=== PATIENT | male | born 1980 | race American Indian/Alaskan Native ===

== ENCOUNTER 2019-05-09 11:26 | Emergency (ER) | payer SELFPAY ==
[2019-05-09 11:32] VITALS: BP 144/93
--- NOTE | 2019-05-09 12:10 | Emergency Department Report ---
Chief Complaint: Extremity Problem,Nontraumatic Stated Complaint: KNEE PAIN Time Seen by Provider: 05/09/19 12:04 - HPI History of Present Illness: 3 weeks of chronic continuous R knee pain with swelling. no trauma no fever - ROS Review of Systems: all systems reviewed and negative - Exam Vital Signs: Vital Signs 05/09/19 11:31 Temperature 98.3 F Pulse Rate 85 Respiratory 16 Rate Blood Pressure 144/93 O2 Sat by Pulse 100 Oximetry Physical Exam: AOx3. right knee with moderate effusion, mild crepitus but FROM, no erythema MSE screening note: Focused history and physical exam performed. Due to findings the following was ordered: ED Medical Decision Making - Medical Decision Making non med emergency. to follow up with Ortho ED Disposition for MSE Clinical Impression: Knee effusion, right Disposition: MED SCREENING EXAM-LEFT Is pt being admited?: No Does the pt Need Aspirin: No Condition: Stable Instructions: Osteoarthritis (ED), Knee Effusion (ED), RICE Therapy (ED) Additional Instructions: Please take Ibuprofen (Motrin or Advil or generic) 800mg every 6-8 hours as needed Referrals: CALOS TAPIA MD [Staff Physician] - 3-5 Days Forms: Work/School Release Form(ED) Time of Disposition: 12:14
== END 2019-05-09 12:15 | disposition left against medical advice (07) ==
LOC: ED 11:26
DX: M25.461 Effusion, right knee (principal)
CPT/HCPCS: 99281

== ENCOUNTER 2019-08-04 20:31 | Emergency (ER) | payer SELFPAY ==
[2019-08-04] MEDS ORDERED: KETOROLAC 30 MG/1 ML INJ IM ONE (21:52)
[2019-08-04] MEDS ORDERED: oxyCODONE /ACETAMINOPHEN 5-325MG TAB PO ONE (21:52)
[2019-08-04] MEDS ORDERED: dexAMETHasone 20 MG/5 ML VIAL IM ONE (21:52)
[2019-08-04] MEDS ORDERED: ONDANSETRON 4 MG ODT TAB PO ONE (21:53)
--- NOTE | 2019-08-04 22:04 | Emergency Department Report ---
ED Back Pain/Injury HPI - General Chief Complaint: Back Pain/Injury Stated Complaint: BACK PAIN RT LEG PAIN x3 WEEKS Source: patient Limitations: No Limitations - History of Present Illness Initial Comments: Patient is a 39-year-old -[place] male with a history of hypertension and chronic low back pain with sciatica who presents to the ED with acute exacerbation of his chronic low back pain that radiates to the right leg and severe right knee pain for the last 3 weeks worse in the last 2 days. Patient states that he has not been able to sleep because of severe pain. Patient states that he has been taking [id number] medications with no relief. Patient states the pain is worse both at rest and with activity and that the pain appears to be mildly relieved when he ambulates around. Patient denies fall, dizziness, syncope, chest pain, shortness of breath, hematuria, dysuria, testicular pain, heavy lifting, traumatic injury, nausea and vomiting or abdominal pain, fever and chills. MD Complaint: back pain, other (right leg) -: Sudden, week(s) (3) Similar Symptoms Previously: Yes Place: home Radiation: right leg Severity: severe Severity scale (0 -10): 8 Quality: sharp, aching Consistency: constant Improves With: none Worsens With: movement, walking Associated Symptoms: denies other symptoms. denies: confusion, weakness, chest pain, numbness, difficulty walking, cough, diaphoresis, incontinence, fever/chills, constipation, nausea/vomiting, rash, seizure, shortness of breath, syncope Treatments Prior to Arrival: NSAIDS, acetaminophen - Related Data Previous Rx's Medication Instructions Recorded Last Taken Type Naproxen 500 mg PO Q12H PRN #30 tablet 08/04/19 Unknown Rx methOCARBAMOL [Robaxin TAB] 750 mg PO Q8H PRN #30 tablet 08/04/19 Unknown Rx predniSONE [Deltasone] 60 mg PO QDAY #15 tab 08/04/19 Unknown Rx traMADoL [Ultram] 50 mg PO Q6HR PRN #12 tablet 08/04/19 Unknown Rx Allergies Allergy/AdvReac Type Severity Reaction Status Date / Time No Known Allergies Allergy Verified 08/04/19 20:47 ED Review of Systems ROS: Stated complaint: BACK PAIN RT LEG PAIN x3 WEEKS Other details as noted in HPI Constitutional: denies: chills, fever Eyes: denies: eye pain, eye discharge, vision change ENT: denies: ear pain, throat pain Respiratory: denies: cough, shortness of breath, wheezing Cardiovascular: denies: chest pain, palpitations Endocrine: no symptoms reported Gastrointestinal: denies: abdominal pain, nausea, diarrhea Genitourinary: denies: urgency, dysuria Musculoskeletal: back pain (Low back pain), arthralgia (right leg and knee pain). denies: joint swelling Skin: denies: rash, lesions Neurological: denies: headache, weakness, paresthesias Psychiatric: denies: anxiety, depression Hematological/Lymphatic: denies: easy bleeding, easy bruising ED Past Medical Hx - Past Medical History Previous Medical History?: Yes Hx Hypertension: Yes - Surgical History Past Surgical History?: Yes Additional Surgical History: back surgery - Social History Smoking Status: Current Every Day Smoker Substance Use Type: None - Medications Home Medications: Home Medications Medication Instructions Recorded Confirmed Last Taken Type Naproxen 500 mg PO Q12H PRN #30 tablet 08/04/19 Unknown Rx methOCARBAMOL [Robaxin TAB] 750 mg PO Q8H PRN #30 tablet 08/04/19 Unknown Rx predniSONE [Deltasone] 60 mg PO QDAY #15 tab 08/04/19 Unknown Rx traMADoL [Ultram] 50 mg PO Q6HR PRN #12 tablet 08/04/19 Unknown Rx ED Physical Exam - General Limitations: No Limitations General appearance: alert, in no apparent distress - Head Head exam: Present: atraumatic, normocephalic, normal inspection - Eye Eye exam: Present: normal appearance, PERRL, EOMI Pupils: Present: normal accommodation - ENT ENT exam: Present: normal exam, normal orophraynx, mucous membranes moist, TM's normal bilaterally, normal external ear exam - Neck Neck exam: Present: normal inspection - Respiratory Respiratory exam: Present: normal lung sounds bilaterally. Absent: respiratory distress, wheezes, rales, rhonchi, accessory muscle use, prolonged expiratory - Cardiovascular Cardiovascular Exam: Present: regular rate, normal rhythm, normal heart sounds. Absent: systolic murmur, diastolic murmur, rubs, gallop - GI/Abdominal GI/Abdominal exam: Present: soft, normal bowel sounds. Absent: tenderness, guarding, rebound, hyperactive bowel sounds, hypoactive bowel sounds, organomegaly - Extremities Exam Extremities exam: Present: normal inspection, full ROM, tenderness (Palpable right knee tenderness with mild swelling and limited range of motion due to pain), normal capillary refill, joint swelling (Mild right knee joint swelling). Absent: calf tenderness - Back Exam Back exam: Present: normal inspection, full ROM, tenderness (Palpable lumbosacral paraspinal musculoskeletal tenderness), muscle spasm, paraspinal tenderness - Neurological Exam Neurological exam: Present: alert, oriented X3, CN II-XII intact, normal gait, reflexes normal - Psychiatric Psychiatric exam: Present: normal affect, normal mood - Skin Skin exam: Present: warm, dry, intact, normal color. Absent: rash ED Course Vital Signs 08/04/19 20:46 Temperature 98.2 F Pulse Rate 75 Respiratory 18 Rate Blood Pressure 181/114 O2 Sat by Pulse 99 Oximetry ED Medical Decision Making - Medical Decision Making This is a 39-year-old -[place] male with a history of hypertension and chronic low back pain with sciatica who presents to the ED with acute exacerbation of his chronic low back pain that radiates to the right leg and severe right knee pain for the last 3 weeks worse in the last 2 days. Patient states that he has not been able to sleep because of severe pain. Patient states that he has been taking [id number] medications with no relief. Patient states the pain is worse both at rest and with activity and that the pain appears to be mildly relieved when he ambulates around. In the ED, patient is alert and oriented x3 and is not in any distress but appears to be in pain. Patient was treated for pain in the ED and on reevaluation, patient's pain is well controlled medications. Patient symptoms are likely due to chronic low back pain with sciatica and degenerative joint disease of the right knee. Patient was discharged home on pain medications and muscle relaxants and was advised to follow-up with his primary care physician in 7 to 10 days for reevaluation or return to the ED immediately if symptoms get worse. - Differential Diagnosis Sciatica; Chronic low back pain; Muscle strain; DJD Critical care attestation.: If time is entered above; I have spent that time in minutes in the direct care of this critically ill patient, excluding procedure time. ED Disposition Clinical Impression: Spasm of muscle of lower back, Primary osteoarthritis of right knee Chronic low back pain with right-sided sciatica Qualifiers: Back pain laterality: right Qualified Code(s): M54.41 - Lumbago with sciatica, right side; G89.29 - Other chronic pain Disposition: TO HOME OR SELFCARE Is pt being admited?: No Does the pt Need Aspirin: No Condition: Stable Instructions: Arthralgia (ED), Knee Pain (ED), Osteoarthritis (ED), Lumbar Radiculopathy (ED), Chronic Back Pain (ED) Additional Instructions: Your symptoms are chronic and require you to either go to a pain clinic to manage your chronic low back pain or see your primary care physician for the same. Therefore take medications as needed with food for your pain, follow-up with your primary care physician in 3 to 5 days for reevaluation. Return to the ED immediately if symptoms get worse. Prescriptions: predniSONE [Deltasone] 60 mg PO QDAY #15 tab Naproxen 500 mg PO Q12H PRN #30 tablet PRN Reason: Pain , Severe (7-10) methOCARBAMOL [Robaxin TAB] 750 mg PO Q8H PRN #30 tablet PRN Reason: Muscle Spasm traMADoL [Ultram] 50 mg PO Q6HR PRN #12 tablet PRN Reason: Pain Referrals: TILA RIVERA MD [Staff Physician] - 3-5 Days Time of Disposition: 22:07 Print Language: IRISH
[2019-08-04 23:23] VITALS: BP 186/107
== END 2019-08-04 23:23 | disposition home or self-care (01) ==
LOC: ED 20:31
DX: M54.41 Lumbago with sciatica, right side (principal); M13.88 Other specified arthritis, other site; M62.830 Muscle spasm of back
CPT/HCPCS: 96372; 99282; J1100; J1885; Q0162